=== PATIENT | male | born 1995 | race Caucasian/White ===

== ENCOUNTER 2017-04-21 22:02 | Emergency (ER) | payer OTHER ==
[~2017-04-21] VITALS: Ht 177.8 cm; Wt 70.3 kg
[~2017-04-21 22:02] MED LIST: DOXYCYCLINE HY100 MG PO; PROTONIX40 MG PO
[2017-04-21] MEDS ORDERED: KEFLEX500 MG PO (22:29)
== END 2017-04-21 22:55 | disposition home or self-care (01) ==
LOC: ED 22:02
DX: N45.1 Epididymitis (principal); I86.1 Scrotal varices
CPT/HCPCS: 81001; 99283

== ENCOUNTER 2017-04-24 21:56 | Emergency (ER) | payer OTHER ==
[~2017-04-24] VITALS: Ht 177.8 cm; Wt 70.3 kg
[~2017-04-24 21:56] MED LIST changes: +KEFLEX500 MG PO
[2017-04-24] MEDS ORDERED: TRAMADOL HCL50 MG PO (23:40)
== END 2017-04-24 23:54 | disposition home or self-care (01) ==
LOC: ED 21:56
DX: I86.1 Scrotal varices (principal); Z79.2 Long term (current) use of antibiotics
CPT/HCPCS: 76870; 99284

== ENCOUNTER 2018-01-09 05:40 | Day surgery (SDC) | payer BC, OTHER ==
[~2018-01-09] VITALS: Ht 180.3 cm; Wt 71.7 kg
[~2018-01-09 05:40] MED LIST changes: +FISH OIL 1,0001 EAC2 NG; +NEXIUM20 MG PO; +TRAMADOL HCL50 MG PO
[2018-01-09] MEDS ORDERED: IBUPROFEN600 MG PO (08:56)
--- NOTE | 2018-01-09 08:56 | NUR ---
01/09/18 0856 Silvia Francis 0848-PATIENT ARRIVED TO PACU ON 10L MASK O2 SAT 100% PATIENT NONAROUSABLE ORAL AIRWAY IN PLACE. DRESSING CDI TO ABDOMEN. RR EVEN. 0853-PATIENT MOVING RIGHT HAND TO VERBAL STIMULI BACK TO SLEEP 02 SAT 100% 10L MASK ORAL AIRWAY REMAINS IN PLACE.
[2018-01-09] MEDS ORDERED: MAPAP325 MG PO (08:57)
[2018-01-09] MEDS ORDERED: OXYCODON-ACETA1 EAC2 PO (08:57)
--- NOTE | 2018-01-09 10:11 | NUR ---
AMB TO BR, VOIDS 550MLS. AMB WELL. GIVEN CRACKERS AND JELLO.
--- NOTE | 2018-01-09 10:44 | OR ---
[facility] [address] [place], [place] [address] Signed DATE OF OPERATION: 01/09/2018 SURGEON: Jocelyn Johnson MD PREOPERATIVE DIAGNOSIS: Supraumbilical hernia, incarcerated. POSTOPERATIVE DIAGNOSIS: Supraumbilical hernia, incarcerated (properitoneal fat 2 cm, defect 5 mm). PROCEDURE: Repair of incarcerated supraumbilical hernia. ANESTHESIA: General LMA, Jocelyn Page CRNA, and local 0.25% Marcaine with epinephrine. INDICATION: This 22-year-old white man works for [employer], does a fair amount of lifting. He noted a painful area in the supraumbilical area with a small nodule. He was evaluated by Dr. Madison who evaluated him and an ultrasound was performed showing a very small fascial defect of about 2 mm or more and a 1-2 cm sized area of herniated fat. As the patient does have pain and it is likely he will have increasing size of the hernia defect, repair has been recommended. The risks of bleeding, infection, recurrence and so forth were reviewed with him. He understands and wished to proceed. FINDINGS: Indeed incarcerated properitoneal fat was noted. It was about 2 cm in size. The defect was about 5 mm or less. Excision of the properitoneal fat was undertaken with reapproximation of fascial defect with a horizontal mattress 0 Prolene suture without problem. DESCRIPTION OF PROCEDURE: The patient was brought to the operating room, given a general anesthetic by LMA technique. Preoperative antibiotic Ancef was given. Sequential compression device stockings were used. The abdomen was clipped and prepared with a chlorhexidine solution and draped sterilely. A transverse incision was made about an inch above the umbilicus. Dissection carried through the subcutaneous tissue ultimately encountering herniated properitoneal fat that was certainly not reducible. It measured about 1-1/2 to 2 cm. This was dissected free circumferentially and photographs were taken. The fascial defect was relatively small. It was quite apparent. Ultimately, the properitoneal fat Electronically Signed By: JOCELYN JOHNSON MD 01/09/18 1044 PATIENT NAME: ESTHER CHRISTENSEN OPERATIVE REPORT DATE OF : [birth year] REPORT #: [id number] PHYSICIAN: JOCELYN JOHNSON MD PCP: ZENOBIA MADISON MD REPORT IS CONFIDENTIAL AND NOT TO BE RELEASED WITHOUT AUTHORIZATION [facility] [address] [place] [id number] Signed was herniated, it was excised. The fascial edges reapproximated transversely with a single interrupted 0 Prolene suture in a horizontal mattress configuration. A 10 mL of 0.25% Marcaine was injected locally for postoperative analgesic effect. Pablo's layer was reapproximated with interrupted 2-0 Vicryl and skin closed with running subcuticular 3-0 Vicryl. Steri-Strips were applied as was a Mepilex silver sponge dressing and an OpSite. The patient was ultimately extubated and transferred to recovery in good condition having suffered no complications. Sponge, needle, and instrument counts reported as correct x3. MD JENA Esparza/MODL /[id number] cc: Zenobia Madison MD Copies: ZENOBIA MADISON MD ~ Electronically Signed By: OJCELYN JOHNSON MD 01/09/18 1044 PATIENT NAME: ESTHER CHRISTENSEN OPERATIVE REPORT DATE OF : [birth year] REPORT #: [id number] PHYSICIAN: JOCELYN JOHNSON MD PCP: ZENOBIA MADISON MD REPORT IS CONFIDENTIAL AND NOT TO BE RELEASED WITHOUT AUTHORIZATION
== END 2018-01-09 11:00 | disposition home or self-care (01) ==
LOC: DS 05:40
PROVIDERS: Surgery
PROC: 0WQF0ZZ Repair Abdominal Wall, Open Approach (ICD-10-PCS; principal; 2018-01-09 06:45)
DX: K42.0 Umbilical hernia with obstruction, without gangrene (principal); F41.9 Anxiety disorder, unspecified; Z87.891 Personal history of nicotine dependence; Z79.899 Other long term (current) drug therapy
CPT/HCPCS: 00750; C1781; J0690; J1100; J1644; J1885; J2250; J2405; J2704; J2765; J3010; J7120

== ENCOUNTER 2018-11-17 19:20 | Emergency (ER) | payer BC, OTHER ==
[~2018-11-17] VITALS: Ht 180.3 cm; Wt 72.6 kg
[~2018-11-17 19:20] MED LIST changes: +IBUPROFEN600 MG PO; +MAPAP325 MG PO; +OXYCODON-ACETA1 EAC2 PO
[2018-11-17] MEDS ORDERED: DOXYCYCLINE HY100 MG PO (22:15)
== END 2018-11-17 23:00 | disposition home or self-care (01) ==
LOC: ED 19:20
DX: N45.1 Epididymitis (principal); Z87.891 Personal history of nicotine dependence
CPT/HCPCS: 76870; 81001; 99284-25

== ENCOUNTER 2023-10-25 09:37 | Day surgery (SDC) | payer OTHER ==
[~2023-10-25] VITALS: Ht 180.3 cm; Wt 84.1 kg
--- NOTE | ~2023-10-25 | OR ---
[facility] [address] [place], [place] [address] Draft DATE OF OPERATION: 10/25/2023 SURGEON: Jocelyn Johnson MD PREOPERATIVE DIAGNOSES: 1. Persistent left upper abdominal pain and epigastric pain. 2. Status post laparoscopic cholecystectomy with cholangiogram in 2019. 3. Diarrhea and episodic rectal bleeding. POSTOPERATIVE DIAGNOSES: 1. Hiatal hernia with distal esophagitis and antral gastritis. 2. Normal-appearing colon and ilium. PROCEDURES: 1. Esophagogastroduodenoscopy with biopsy. 2. Total colonoscopy to cecum with biopsy of rectum, cecum and ileum. ANESTHESIA: Intravenous sedation; fentanyl 200 mcg and Versed 10 mg, total. INDICATION: This 28-year-old white man is a patient of YANELY Goodwin. He is known to me from the past having had cholecystectomy in 2020. He had developed some diarrhea following cholecystectomy, considered likely choleretic diarrhea. He was improved with bile acid-binding medication. He has had episodic rectal bleeding as well though not very much. Additionally, he has persistent left upper abdominal and epigastric pain. He has been treated with omeprazole and variably also with Carafate which was of some benefit, but not complete resolution of symptoms. On the basis of these concerns, he is here to undergo upper endoscopy and colonoscopy. FINDINGS: Upper endoscopy did demonstrate chronic distal esophagitis without signs of Little's epithelium, neoplasm, or stricture. He did have diffuse gastritis as well. CLOtest was negative 40 minutes post procedure. On colonoscopy, complete colonoscopy was undertaken of the cecum with intubation of the ileum. There were patches in the ileum as would be expected but no sign of pathology, otherwise remaining colon was normal. Biopsies were obtained of the ileum, cecum, and rectum to assess for occult colitis. PATIENT NAME: ESTHER CHRISTENSEN OPERATIVE REPORT DATE OF : [birth year] REPORT #: [id number] PHYSICIAN: JOCELYN JOHNSON MD PCP: LATESHA BUNCH PA-C REPORT IS CONFIDENTIAL AND NOT TO BE RELEASED WITHOUT AUTHORIZATION [facility] [address] [place], [place] [address] Draft DESCRIPTION OF PROCEDURE: The patient was brought to the endoscopy suite and placed in the lateral decubitus position after undergoing topical lidocaine hypopharyngeal anesthesia. A bite block was placed. An Olympus video upper endoscope was passed in the hypopharynx. Brief evaluation of the vocal cords showed them to be normal. Scope was passed down the esophagus without impediment. The distal portion showed chronic inflammatory change. No sign of Little's epithelium. No neoplasm, stricture, or other problem. The scope was advanced to the stomach which was insufflated with air. The antrum appeared edematous and with punctate changes highly consistent with antral gastritis. Pylorus was normal. Scope was passed through into the duodenum, which was normal. Biopsies were taken of the 2nd and 3rd portions of the duodenum. Close inspection of pyloric channel and the bulb showed no sign of ulceration. The scope was withdrawn and biopsy was then taken of the antrum for both DUNIA and pathologic testing. Retroflexed view was undertaken showing a poor flap valve and ultimately complete withdrawal of the flexed scope into the distal esophagus consistent with a hiatal hernia. Scope was then straightened and withdrawn. Biopsies taken of the distal esophagus and subsequently midesophagus. The scope was removed and there were no other findings of concern. Plans were then made for colonoscopy. Additional sedation was given. Digital rectal examination performed which was normal and an Olympus video colonoscope passed in the rectum. The scope was manipulated throughout the colon ultimately intubating the cecum itself. The colon was left well prepped in the cecum proper but with irrigation good visualization of the mucosa was accomplished. Biopsies were taken of the mucosa. Considering his diarrhea episodically as well as his young age, intubation of the ileum was deemed important and efforts were made to do so. Ultimately, the scope was passed into the ilium expecting it fully showing no sign of ulceration, stricture, neoplasm, but did show some mucosal lymphoid aggregates. Biopsies were obtained. The scope was withdrawn and examination throughout showed no sign of abnormality of the remaining colon. Biopsies were taken of the rectum in addition to those previously taken of the cecum and ileum. The scope was removed and the patient was taken to the recovery room in good condition. CONCLUDING DIAGNOSIS: Trivial bleeding per rectum of little consequence and no specific finding noted on colonoscopy, though biopsies are pending to assess for occult colitis. Left upper abdominal pain, epigastric pain, likely related to gastritis as well as probable reflux esophagitis. PLAN: We will recommend Carafate 1 g p.o. q.i.d. in addition to PPI medication Prilosec 20 mg to 40 mg p.o. daily. We will see him back in the office in 4 to 6 weeks. PATIENT NAME: ESTHER CHRISTENSEN OPERATIVE REPORT DATE OF : [birth year] REPORT #: [id number] PHYSICIAN: JOCELYN JOHNSON MD PCP: LATESHA BUNCH PA-C REPORT IS CONFIDENTIAL AND NOT TO BE RELEASED WITHOUT AUTHORIZATION [address] [address] Draft MD JENA Esparza/JOSHUA /[id number] cc: Latesha Bunch PA-C Copies: LATESHA BUNCH PA-C ~ PATIENT NAME: ESTHER CHRISTENSEN OPERATIVE REPORT DATE OF : [birth year] REPORT #: [id number] PHYSICIAN: JOCELYN JOHNSON MD PCP: LATESHA BUNCH PA-C REPORT IS CONFIDENTIAL AND NOT TO BE RELEASED WITHOUT AUTHORIZATION
[~2023-10-25 09:37] MED LIST changes: +MULTIVITAMINS1 EAC8 PO; +OMEPRAZOLE20 MG PO; +TYLENOL EXTRA500 MG PO
[2023-10-25 09:54] VITALS: BP 140/75
[2023-10-25] MEDS ORDERED: COLESTIPOL HCL5 GM PO (10:02)
[2023-10-25] MEDS ORDERED: VITAMIN D350 MCG PO (10:03)
--- NOTE | 2023-10-25 12:44 | NUR ---
10/25/23 1244 Francia Weldon PT TO PACU AWAKE AND ALERT DENIES PAIN AND NAUSEA. PT PASSING GAS.
[2023-10-25 13:07] VITALS: BP 117/68
--- NOTE | 2023-10-29 16:00 | PATH ---
[facility] [address] [place], [place] [address] Signed SPECIMEN(S): A DUODENAL BIOPSY SPECIMEN(S): B ANTRUM/PYLORUS BIOPSY SPECIMEN(S): C LOWER ESOPHAGEAL BIOPSY SPECIMEN(S): D MIDDLE ESOPHAGEAL BIOPSY SPECIMEN(S): E CECUM COLON BIOPSY SPECIMEN(S): F TERMINAL ILEUM BIOPSY SPECIMEN(S): G RECTUM BIOPSY SPECIMEN SOURCE: A. DUODENAL BIOPSY B. ANTRUM/PYLORUS BIOPSY C. LOWER ESOPHAGEAL BIOPSY D. MIDDLE ESOPHAGEAL BIOPSY E. CECUM COLON BIOPSY F. TERMINAL ILEUM BIOPSY G. RECTUM BIOPSY CLINICAL HISTORY: Right and left upper quadrant pain, diarrhea FINAL PATHOLOGIC DIAGNOSIS: A Duodenal biopsy: - Benign duodenal mucosa, negative for specific diagnostic abnormality. B. Antrum/pylorus biopsy: - Benign gastric-type mucosa with focal slight chronic inflammation. - Negative for evidence of Helicobacter organisms on routine HE-stained sections. C. Lower esophageal biopsy: - Benign esophageal and gastric-type mucosa with focal slight chronic inflammation. - Negative for specialized intestinal metaplasia or dysplasia. - Negative for increased epithelial eosinophils. D. Middle esophageal biopsy: - Benign esophageal mucosa, negative for increased epithelial eosinophils. E. Cecum colon biopsy: - Benign colonic mucosa with focal slight active colitis (nonspecific). F. Terminal ileum biopsy: - Benign small bowel-type mucosa, negative for specific diagnostic abnormality. G. Rectum biopsy: - Benign colonic mucosa with focal slight hyperplastic features, negative for PATIENT NAME: ESTHER CHRISTENSEN PATHOLOGY DATE OF : [birth year] REPORT #: [id number] PHYSICIAN: LEE PATHOLOGY PCP: KAYE MONSIVAIS PA-C REPORT IS CONFIDENTIAL AND NOT TO BE RELEASED WITHOUT AUTHORIZATION [facility] [address] [place], [place] [address] Signed pathologic inflammation. JVR:zelalem MICROSCOPIC EXAMINATION: Histologic sections of all submitted blocks are examined by light microscopy. These findings, together with the gross examination, support the pathologic diagnosis. GROSS DESCRIPTION: A. The specimen, labeled and designated "Alfredo, duodenal biopsy," is received in formalin and consists of three ashford soft tissue fragments, ranging from 0.2-0.3 cm. Entirely submitted in (A1). B. The specimen, labeled and designated "Alfredo, antrum/pylorus biopsy," is received in formalin and consists of two ashford soft tissue fragments, ranging from 0.3-0.7 cm. Entirely submitted in (B1). C. The specimen, labeled and designated "Alfredo, lower esophageal biopsy," is received in formalin and consists of six ashford soft tissue fragments, ranging from 0.2-0.5 cm. Entirely submitted in (C1). D. The specimen, labeled and designated "Alfredo, middle esophageal biopsy," is received in formalin and consists of two ashford soft tissue fragments, ranging from 0.3-0.4 cm. Entirely submitted in (D1). E. The specimen, labeled and designated "Alfredo, cecum colon biopsy," is received in formalin and consists of three ashford soft tissue fragments, ranging from 0.3-0.4 cm. Entirely submitted in (E1). F. The specimen, labeled and designated "Alfredo, terminal ileum biopsy," is received in formalin and consists of two ashford soft tissue fragments, ranging from 0.2-0.3 cm. Entirely submitted in (F1). G. The specimen, labeled and designated "Alfredo, rectum biopsy," is received in formalin and consists of two ashford soft tissue fragments, ranging from 0.3-0.4 cm. Entirely submitted in (G1). VB (under the direct supervision of a pathologist) The Gross Description was prepared using a voice recognition system. The report was reviewed for accuracy; however, sound-alike word errors, addition and/or deletions may occur. If there is any question about this report, please contact Client Services. PERFORMING LABORATORY: Technical component was performed by [facility], [address] [place] [id number] (CLIA# [id number]). Professional interpretation was performed by [facility], [address] [place] [id number] (CLIA#: [id number]). PATIENT NAME: ESTHER CHRISTENSEN PATHOLOGY DATE OF : [birth year] REPORT #: [id number] PHYSICIAN: LEE VÁSQUEZ PCP: KAYE MONSIVAIS PA-C REPORT IS CONFIDENTIAL AND NOT TO BE RELEASED WITHOUT AUTHORIZATION [facility] [address] [place] [id number] Signed Diagnostician: Aiden Montana MD Pathologist Electronically Signed 10/29/2023 Copies: ~ PATIENT NAME: ESTHER CHRISTENSEN PATHOLOGY DATE OF : [birth year] REPORT #: [id number] PHYSICIAN: LEE PATHOLOGY PCP: KAYE MONSIVAIS PA-C REPORT IS CONFIDENTIAL AND NOT TO BE RELEASED WITHOUT AUTHORIZATION
== END 2023-10-25 13:20 | disposition home or self-care (01) ==
LOC: OPS 09:37 → DS 09:37 → OPS 10:45 → DS 10:45 → OPS 13:20
PROVIDERS: ATTEND Surgery
PROC: 0DB28ZX Excision of Middle Esophagus, Via Natural or Artificial Opening Endoscopic, Diagnostic (ICD-10-PCS; 2023-10-25)
PROC: 0DB38ZX Excision of Lower Esophagus, Via Natural or Artificial Opening Endoscopic, Diagnostic (ICD-10-PCS; 2023-10-25)
PROC: 0DBH8ZX Excision of Cecum, Via Natural or Artificial Opening Endoscopic, Diagnostic (ICD-10-PCS; 2023-10-25)
PROC: 0DBP8ZX Excision of Rectum, Via Natural or Artificial Opening Endoscopic, Diagnostic (ICD-10-PCS; 2023-10-25)
PROC: 0DBB8ZX Excision of Ileum, Via Natural or Artificial Opening Endoscopic, Diagnostic (ICD-10-PCS; 2023-10-25)
PROC: 0DB98ZX Excision of Duodenum, Via Natural or Artificial Opening Endoscopic, Diagnostic (ICD-10-PCS; principal; 2023-10-25 10:45)
PROC: 0DB68ZX Excision of Stomach, Via Natural or Artificial Opening Endoscopic, Diagnostic (ICD-10-PCS; 2023-10-25 10:45)
DX: K29.70 Gastritis, unspecified, without bleeding (principal); K20.90 Esophagitis, unspecified without bleeding; K44.9 Diaphragmatic hernia without obstruction or gangrene; K52.9 Noninfective gastroenteritis and colitis, unspecified; K62.5 Hemorrhage of anus and rectum; Z90.49 Acquired absence of other specified parts of digestive tract; Z98.890 Other specified postprocedural states
CPT/HCPCS: 99153; G0500; J2250; J3010; J7121

== ENCOUNTER 2025-04-29 01:31 | Emergency (ER) | payer OTHER ==
[~2025-04-29] VITALS: Ht 180.3 cm; Wt 90.0 kg
[~2025-04-29 01:31] MED LIST changes: +COLESTIPOL HCL5 GM PO; +VITAMIN D350 MCG PO
[2025-04-29 02:12] VITALS: BP 157/94
--- NOTE | 2025-04-29 22:32 | EKG ---
[facility] [address] [address] Signed Sinus rhythm with premature atrial complexes Otherwise normal ECG No previous ECGs available Confirmed by Charlotte Lockwood MD () on 04/29/2025 10:32:19 PM Electronically Signed By: CHARLOTTE LOCKWOOD MD 04/29/252231 PATIENT NAME: ESTHER CHRISTENSEN Electrocardiogram DATE OF : [birth year] PHYSICIAN: CHARLOTTE LOCKWOOD MD REPORT #: [id number] REPORT IS CONFIDENTIAL AND NOT TO BE RELEASED WITHOUT AUTHORIZATION
== END 2025-04-29 02:12 | disposition home or self-care (01) ==
LOC: ED 01:31
DX: I49.3 Ventricular premature depolarization (principal); R00.1 Bradycardia, unspecified; Z87.891 Personal history of nicotine dependence; Z79.899 Other long term (current) drug therapy
CPT/HCPCS: 71045; 93005; 93010